=== PATIENT | female | born 1975 | race Caucasian/White ===

== ENCOUNTER → 2017-09-19 08:55 | Outpatient (CLI) | payer BC ==
[2015-12-22 11:26] VITALS: BMI 32.8
[~2017-09-19 08:55] MED LIST: BUTALB-APAP-CA1 EACH PO; MARTEN-TAB 325/1 TAB PO; PAMELOR 25 MG C25 MG PO; ULTRAM50 MG PO
== END | disposition home or self-care (01) ==
LOC: D.MRI 08:55
DX: M24.271 Disorder of ligament, right ankle (principal)

== ENCOUNTER 2017-10-25 05:11 | Day surgery (SDC) | payer BC ==
[2017-10-24 14:47] LABS: HEMATOCRIT 37.1 % (36.0-48.0); HEMOGLOBIN 12.5 g/dL (12-16); MCH 30.6 pg (26.0-34.0); MCHC 33.7 g/dL (31.0-37.0); MCV 90.9 fL (80.0-100.0); MEAN PLATELET VOLUME 9.6 fL (7.4-10.4); RBC 4.08 10x6/uL (4.00-5.40); RDW 12.6 % (11.5-14.5); WBC 6.6 10x3/uL (4.8-10.8)
[~2017-10-25] VITALS: Ht 157.5 cm; Wt 68.0 kg
[~2017-10-25 05:11] MED LIST changes: -BUTALB-APAP-CA1 EACH PO
[2017-10-25] MEDS ORDERED: BUTALB-APAP-CA1 EACH PO (05:24)
[2017-10-25 05:29] VITALS: BP 108/65; Ht 157.5 cm; Wt 68.0 kg
--- NOTE | 2017-11-01 08:43 | OP ---
PATIENT NAME: ALONZO CARMONA MEDICAL RECORD: [id number] :79 LOCATION:[facility] ADMISSION DATE: SURGEON: KALEY VERGARA DPM DATE OF OPERATION: 10/25/2017 PREOPERATIVE DIAGNOSES: Right ankle ligament rupture, ATF and CF ligaments as well as stress fracture, right talus. POSTOPERATIVE DIAGNOSES: ATF rupture, right ankle and stress fracture, right talus. PROCEDURES: 1. Right ankle arthroscopy. 2. Right ATF repair with InternalBrace and modified Brostrom. 3. Open reduction internal fixation of right talus. ANESTHESIA: Preoperative popliteal block and saphenous block per the anesthesia department as well as general anesthesia. HEMOSTASIS: Right thigh tourniquet at 350 mmHg. PREOPERATIVE DETAILS: The patient was taken to the OR, placed on the operating table in supine position. This was followed by induction of general anesthesia. No local anesthetic was administered at this time. The right extremity was then prepped and draped in the usual aseptic technique followed by exsanguination of extremity and inflation of tourniquet. PROCEDURE #1: Right ankle arthroscopy. A 15 blade was used to make a small stab incision over the anterolateral aspect of the right ankle. The incision deepened down bluntly and the joint capsule was punctured with a trocar and cannula, introducing the camera in the lateral portal. Upon initial inspection, there was noted to be some impinging synovitis noted in the lateral gutter and lateral anterior medial shoulder. A small stab incision was made over the anterior medial aspect of the medial shoulder of the ankle joint with blunt dissection down to the capsule which was punctured with a trocar and cannula, introduction of a synovial shaver. The synovial shaver was used to debride the impinging synovitis. The AITF ligament was intact. The ATF ligament appeared to be stretched or attenuated at this time utilizing inversion stress. There was only minimal separation of the lateral gutter, indicating that the CF ligament was not ruptured. Once the impinging synovitis was resected with the synovial shaver, the portals were switched with the camera introduced medially and the synovial shaver laterally and the process was repeated checking all the ligaments once again as well as rechecking the inversion stress and anterior drawer. The synovial shaver and camera were then removed. PROCEDURE #2: ATF ligament repair, right ankle: The lateral incision over the anterior aspect of the ankle was elongated in a J shape with the distal end of the incision being just under the fibula. The incision deepened down through subcutaneous tissue being sure to avoid all vital structures down to the joint capsule, which was incised sharply exposing the ATF ligament. At this time, utilizing [employer] InternalBrace system, the ligament was recreated being sure to having the tails up underneath the leg, letting the foot suspend to give good reduction of the problem. Following the InternalBrace which was placed in the distal fibula and the talus, a modified Brostrom was performed over the top giving excellent stability of the ankle. Range of motion was excellent in all OPERATIVE REPORT [id number] ALONZO CARMONA. The wound was flushed and the deep tissue was closed with 2-0 Vicryl, the subcutaneous tissue with 4-0 Rapide and the skin was closed with 4-0 Rapide in a subcuticular technique followed by Dermabond. The anterior medial incision over the medial gutter of the ankle joint was also closed with 4-0 Rapide in a simple interrupted technique followed by Dermabond. PROCEDURE #3: Open reduction internal fixation, stress fracture, right talus: Utilizing a guidewire with fluoroscopy introduced medially into the talus, talar body under fluoroscopy, the guidewire was placed into the body of the talus. At this time, utilizing the AccuFill Bone Substitute under fluoroscopy, 0.9 cc of the AccuFill was injected in the body of the talus and the area of the stress fracture. It was allowed to cure for 10 minutes. The cannula was then removed and the incision was closed with 4-0 Rapide. Adaptic, 4 x 4 and Conform were used to dress the wounds followed by application of a modified Mercado compression dressing. Tourniquet was deflated. POSTOPERATIVE DETAILS: The patient tolerated the procedure well and left the OR with vital signs stable and vascular status at preop levels. The patient was transported to recovery per anesthesia in stable condition. TRANSINT:[id number] Voice Confirmation ID: [id number] DOCUMENT ID: [id number] KALEY VERGARA DPM at 0843 CC: [id number] DICTATION DATE: 10/25/17931 CAN MACHINE OPERATOR: 10/25/17 1256 [facility] 10/25/17 [facility] [address] [place] [address]
== END 2017-10-25 11:50 | disposition home or self-care (01) ==
LOC: D.OPS 05:11 → D.PAN 07:00 → D.OPS 11:50
PROVIDERS: Anesthesiology
DX: S93.491A Sprain of other ligament of right ankle, initial encounter (principal); M84.371A Stress fracture, right ankle, initial encounter for fracture; X58.XXXA Exposure to other specified factors, initial encounter; Z01.812 Encounter for preprocedural laboratory examination

== ENCOUNTER 2017-10-29 19:41 | Emergency (ER) | payer BC ==
[2017-10-25 05:29] VITALS: BMI 27.5
[~2017-10-29 19:41] MED LIST changes: +BUTALB-APAP-CA1 EACH PO
== END 2017-10-29 22:13 | disposition home or self-care (01) ==
LOC: D.ER 19:41
DX: G89.18 Other acute postprocedural pain (principal); M79.671 Pain in right foot

== ENCOUNTER → 2018-07-06 08:56 | Outpatient (CLI) | payer BC ==
[2017-10-25 05:29] VITALS: BMI 27.5
--- NOTE | ~2018-07-06 | EC ---
PATIENT:ALONZO CARMONA DATE OF SERVICE: 07/06/18 SEX: F MEDICAL RECORD: [id number] DATE OF : 79 LOCATION:[facility] AGE OF PATIENT: 43 ADMISSION DATE: 07/06/18 REFERRING PHYSICIAN: INTERPRETING PHYSICIAN: AVANI DALEY MD ECHOCARDIOGRAM REPORT ECHO CHARGES 4 ECHO COMPLETE Date: 07/06 CLINICAL DIAGNOSIS: CP, DYSPENA, DM ECHOCARDIOGRAPHIC MEASUREMENTS (adult normal given) AC root (d.<3.7cm) 2.0 cm LV Septum d (<1.2 cm> 1.2 cm Valve Excursion 1.0 cm LV Septum (systole) 0.9 cm Left Atria (s.<4.0cm> 3.5 cm LVPW d(<1.2cm) 0.7 cm RV (d.<2.3cm) 3.0 cm LVPW (sytole) 0.9 cm LV diastole(<5.6CM) 4.9 cm MV E-F(>70mm/sec) cm LV systole 3.8 cm LVOT Diameter 1.5 cm MV exc.(>10mm) cm Est.ejection fraction (50-75%) % DOPPLER: LVIT cm/sec A 55 cm/sec E 80 cm/sec LA cm/sec RVSP 20.6 mmHg LVOT 82 cm/sec AOP1/2T m/s Asc. Ao 121 cm/sec RVOT 46 cm/sec RA cm/sec PA 46 cm/sec AV Gradient Peak 5.8 mmHg AV Mean 4.2 mmHg AV Area 1.5 cm MV Gradient Peak 3.2 mmHg MV Mean 1.4 mmHg MV Area cm COMMENTS: Transfer Pumper: Nadia [facility] Bag Presser: Ashley Daley TAPE# PACS Pericardial Effusion N DATE OF SERVICE: PROCEDURE: Transthoracic echocardiogram. FINDINGS: 1. Left ventricle is normal size, shape, structure, and function. Ejection fraction 60%. 2. The left atrium is normal. 3. The aortic valve is normal. 4. The mitral valve is structurally normal. [id number] mitral ECHOCARDIOGRAM REPORT [id number] ALONZO CARMONA regurgitation. 5. The tricuspid valve is structurally normal. Trace tricuspid regurgitation with an RVSP of 28.6 mmHg. 6. The right ventricle is normal size, shape, structure, and function. 7. Interatrial septum has color flow evidence of a possible small PFO, depending on clinical situation may be reasonable to go further with an evaluation such as a bubble study. IMPRESSION: Overall normal echocardiogram with evidence of a possible small PFO. TRANSINT:[id number] Voice Confirmation ID: [id number] DOCUMENT ID: [id number] AVANI DALEY MD at 1458 CC: [id number] DICTATION DATE: 07/10/18 0835 CREDIT DEPARTMENT MANAGER: 07/10/18 0854 DEP CLI 07/06/[address] [id number]
== END | disposition home or self-care (01) ==
LOC: D.ECHO 08:56
DX: R07.9 Chest pain, unspecified (principal); R06.00 Dyspnea, unspecified; E11.9 Type 2 diabetes mellitus without complications

== ENCOUNTER → 2019-05-27 07:26 | Outpatient (CLI) | payer BC ==
[2017-10-25 05:29] VITALS: BMI 27.5
== END | disposition home or self-care (01) ==
LOC: D.MRI 07:26
PROVIDERS: ATTEND Family Medicine
DX: M54.5 Low back pain (principal)

== ENCOUNTER → 2021-05-17 09:27 | Outpatient (CLI) | payer BC ==
[2017-10-25 05:29] VITALS: BMI 27.5
== END | disposition home or self-care (01) ==
LOC: D.LAB 09:27
PROVIDERS: ATTEND Internal Medicine Pulmonary Disease
DX: Z11.52 Encounter for screening for COVID-19 (principal)

== ENCOUNTER → 2021-05-20 07:36 | Outpatient (CLI) | payer BC ==
[2017-10-25 05:29] VITALS: BMI 27.5
== END | disposition home or self-care (01) ==
LOC: D.RT 07:36
PROVIDERS: ATTEND Internal Medicine Pulmonary Disease
DX: R06.09 Other forms of dyspnea (principal)